=== PATIENT | male | born 1995 | race Caucasian/White ===

== ENCOUNTER 2016-12-21 10:03 | Emergency (ER) | payer OTHER ==
[2016-12-21 10:22] VITALS: BP 147/83
[2016-12-21] MEDS ORDERED: MAG HYDROX/AL HYDROX/SIMETH SUSP 30 ML UDCUP PO ONE (10:34)
[2016-12-21] MEDS ORDERED: LIDOCAINE 2% VISCOUS SOLN 20 ML UDCUP PO ONE (10:34)
[2016-12-21] MEDS ORDERED: METOCLOPRAMIDE HCL 10 MG TABLET PO ONE (10:34)
--- NOTE | 2016-12-21 10:38 | ER Document Report ---
ED Medical Screen (RME) - General Chief Complaint: Abdominal Pain Stated Complaint: VOMITING Time Seen by Provider: 12/21/16 10:28 Notes: Patient is a 21-year-old male presents emergency department complaining of abdominal pain intermittent for 1 week. Admits to associated nausea, vomiting, diarrhea. Patient states that he has a history of chronic epigastric pain that has been on and off since he had about 15 years old. Patient has followed with Dr. Hamm has had an EGD colonoscopy in the past. Denies any diagnosis of Crohn 's disease, ulcerative colitis, irritable bowel disease. Patient states that he does have heartburn from time to time. Denies any improvement with. States he cannot tolerate Pepto-Bismol. I have greeted and performed a rapid initial assessment of this patient. A comprehensive ED assessment and evaluation of the patient, analysis of test results and completion of the medical decision making process will be conducted by additional ED providers. TRAVEL OUTSIDE OF THE [place] IN LAST 30 DAYS: No - Related Data Allergies/Adverse Reactions: No Known Allergies Allergy (Verified 12/21/16 10:19) Past Medical History Renal/ Medical History: Denies: Hx Peritoneal Dialysis - Immunizations Immunizations up to date: Yes Hx Diphtheria, Pertussis, Tetanus Vaccination: Yes Physical Exam - Vital signs Vitals: Temp Pulse Resp BP Pulse Ox 98.4 F 76 18 147/83 H 98 12/21/16 10:12/21/16 10:12/21/16 10:12/21/16 10:12/21/16 10:19 - General General appearance: Appears well, Alert In distress: None - Respiratory Respiratory status: No respiratory distress Chest status: Nontender Breath sounds: Normal Chest palpation: Normal - Cardiovascular Rhythm: Regular Heart sounds: Normal auscultation Murmur: No Pulses: Normal: Radial - Abdominal Inspection: Normal Distension: No distension Bowel sounds: Normal Tenderness: No: McBurney's point, Guarding, Rebound Course - Vital Signs Vital signs: Temp Pulse Resp BP Pulse Ox 98.4 F 76 18 147/83 H 98 12/21/16 10:19 12/21/16 10:19 12/21/16 10:12/21/16 10:12/21/16 10:19
[2016-12-21 11:16] LABS: ABSOLUTE BASOPHILS # (AUTO) 0.1 10^3/uL (0.0-0.2); ABSOLUTE EOSINOPHILS # (AUTO) 0.2 10^3/uL (0.0-0.6); ABSOLUTE LYMPHOCYTES (AUTO) 1.8 10^3/uL (0.5-4.7); ABSOLUTE MONOCYTES (AUTO) 0.4 10^3/uL (0.1-1.4); ABSOLUTE NEUT (AUTO) 2.8 10^3/uL (1.7-8.2); EOSINOPHILS % (AUTO) 3.7 % (0-6); HEMATOCRIT 46.3 % (37.9-51.0); HEMOGLOBIN 15.6 g/dL (13.5-17.0); HGB HCT DIFFERENCE 0.5; LYMPHOCYTES % (AUTO) 35.1 % (13-45); MEAN CORPUSCULAR HEMOGLOBIN 31.7 pg (27.0-33.4); MEAN CORPUSCULAR HGB CONC 33.8 g/dL (32.0-36.0); MEAN CORPUSCULAR VOLUME 94 fl (80-97); MONOCYTES % (AUTO) 6.9 % (3-13); RED BLOOD COUNT 4.93 10^6/uL (4.35-5.55); RED CELL DISTRIBUTION WIDTH 12.3 % (11.5-14.0); SEGMENTED NEUTROPHILS % (AUTO) 53.3 % (42-78); WHITE BLOOD COUNT 5.2 10^3/uL (4.0-10.5)
[2016-12-21 11:31] LABS: ALANINE AMINOTRANSFERASE 23 U/L (21-72); ALBUMIN 4.2 g/dL (3.5-5.0); ALKALINE PHOSPHATASE 63 U/L (38-126); ANION GAP 9 (5-19); ASPARTATE AMINO TRANSFERASE 18 U/L (17-59); BILIRUBIN,DIRECT 0.3 mg/dL (0.0-0.4); BILIRUBIN,TOTAL 0.9 mg/dL (0.2-1.3); BLOOD UREA NITROGEN 8 mg/dL (7-20); CALCIUM 9.8 mg/dL (8.4-10.2); CARBON DIOXIDE 28 mmol/L (22-30); CHLORIDE 105 mmol/L (98-107); CREATININE RESULT 0.82 mg/dL (0.52-1.25); GLUCOSE 90 mg/dL (75-110); LIPASE 72.6 U/L (23-300); POTASSIUM 5.1 mmol/L (3.6-5.0); SODIUM 141.8 mmol/L (137-145); TOTAL PROTEIN 6.6 g/dL (6.3-8.2)
--- NOTE | 2016-12-21 11:34 | ER Document Report ---
ED GI/ - General Chief Complaint: Abdominal Pain Stated Complaint: VOMITING Time Seen by Provider: 12/21/16 10:28 Notes: Patient is a 21-year-old male presents emergency department complaining of abdominal pain intermittent for 1 week. Admits to associated nausea, vomiting, diarrhea. Patient states that he has a history of chronic epigastric pain that has been on and off since he had about 15 years old. Patient has followed with Dr. Hamm has had an EGD colonoscopy in the past. Denies any diagnosis of Crohn 's disease, ulcerative colitis, irritable bowel disease. Patient states that he does have heartburn from time to time and had to take medication but unaware of what it was. States it did improve his symptoms. Denies any improvement with tums, states he cannot tolerate Pepto-Bismol. TRAVEL OUTSIDE OF THE [place] IN LAST 30 DAYS: No - Related Data Allergies/Adverse Reactions: No Known Allergies Allergy (Verified 12/21/16 10:19) Past Medical History - Social History Smoking Status: Current Every Day Smoker Chew tobacco use (# tins/day): No Frequency of alcohol use: Social Drug Abuse: None Family History: Reviewed & Not Pertinent Patient has suicidal ideation: No Patient has homicidal ideation: No Renal/ Medical History: Denies: Hx Peritoneal Dialysis - Immunizations Immunizations up to date: Yes Hx Diphtheria, Pertussis, Tetanus Vaccination: Yes Review of Systems - Review of Systems Constitutional: No symptoms reported EENT: No symptoms reported Cardiovascular: No symptoms reported Respiratory: No symptoms reported Gastrointestinal: See HPI Genitourinary: No symptoms reported -: Yes All other systems reviewed and negative Physical Exam - Vital signs Vitals: Temp Pulse Resp BP Pulse Ox 98.4 F 76 18 147/83 H 98 12/21/16 10:19 12/21/16 10:19 12/21/16 10:19 12/21/16 10:19 12/21/16 10:19 - Notes Notes: PHYSICAL EXAM GENERAL: Alert, interacts well. HEAD: Normocephalic, atraumatic. EYES: Pupils equal, round, and reactive to light. Extraocular movements intact. ENT: Oral mucosa moist, tongue midline. NECK: Full range of motion. Supple. Trachea midline. LUNGS: Clear to auscultation bilaterally, no wheezes, rales, or rhonchi. No respiratory distress. HEART: Regular rate and rhythm. No murmurs, gallops, or rubs. ABDOMEN: Soft, nondistended, nontender. No guarding, rebound, or rigidity.. Bowel sounds present in all 4 quadrants. EXTREMITIES: Moves all 4 extremities spontaneously. No edema, radial and dorsalis pedis pulses 2/4 bilaterally. No cyanosis. NEUROLOGICAL: Alert and oriented x4. Normal speech. PSYCH: Normal affect, normal mood. SKIN: Warm, dry, normal turgor. No rashes or lesions noted. Course - Re-evaluation Re-evalutation: 12/21/16 19:11 Patient is a 21-year-old male who is hemodynamically stable, no acute distress and afebrile. Review of Dr. Hamm evaluation showed the patient was diagnosed with esophageal reflux disease. Patient has been started on Nexium but never followed up with him. No evidence of irritable bowel disease, Crohn's, ulcerative colitis on colonoscopy results. Based on the results and benign history and physical exam, discharge patient home continuing PPI treatment and can follow-up with Dr. Hamm - Vital Signs Vital signs: Temp Pulse Resp BP Pulse Ox 98.4 F 76 18 147/83 H 98 12/21/16 10:19 12/21/16 10:19 12/21/16 10:19 12/21/16 10:19 12/21/16 10:19 - Laboratory Result Diagrams: 12/21/16 10:45 12/21/16 10:45 Laboratory results interpreted by me: 12/21/16 10:45 Potassium 5.1 H Discharge - Discharge Clinical Impression: Epigastric abdominal pain Condition: Good Disposition: HOME, SELF-CARE Additional Instructions: ABDOMINAL PAIN: There are many causes of abdominal pain. Pain can mean a serious problem requiring surgery (such as appendicitis). It can also be an innocent problem that goes away on its own (such as a viral infection). Often, time must pass to determine the cause of pain. The physician does not feel that hospitalization is necessary, at present. Things may change within the next 24 hours. Call the doctor or come back for re- examination if any problems occur, such as: (1) Pain that becomes more severe, steady, or becomes concentrated in one specific area. Also, pain that is more severe with movement or coughing. (2) Vomiting that persists or becomes more frequent. (3) Blood in the vomitus, urine, or bowel movements. Blood in the stool may have a tarry or black appearance. (4) Shaking chills or fever greater than 100 degrees F. (5) The abdomen becomes more distended or swollen. (6) Bowel movements cease. (7) Failure to improve as expected. NORMAL EXAM AND WORKUP: At this time, your examination and workup show no significant abnormality. No significant abnormal physical findings are noted. All laboratory, EKG, and imaging (x-ray, CT scans, ultrasound) studies that were ordered show no significant abnormality. Although your examination and all studies that were ordered showed no significant abnormal finding, there are no examinations and no studies that are 100% accurate. There is always the possibility that some abnormality could exist and not be detected with physical examination or within the limits and capabilities of laboratory and other studies. You should return or follow up as you were instructed on your visit today for further evaluation if your symptoms do not resolve. ANTINAUSEA MEDICATION: You have been given a medication to suppress nausea and vomiting. This type of medication can be given as a shot, pill, or suppository. It will usually last for many hours. Pills and shots usually last six to eight hours, suppositories last about 12 hours. For the typical illness, only one or two doses of the medication may be necessary. Mild lightheadedness may occur. This type of medicine can cause drowsiness. Do not drive or operate dangerous machinery while under its influence. Do not mix with alcohol. See your doctor at once if you have muscle spasms or tightness, or uncontrollable motions (particularly of the neck, mouth, or jaw). Persistent vomiting or severe lightheadedness should also be evaluated by the physician. FOLLOW-UP CARE: If you have been referred to a physician for follow-up care, call the physician s office for an appointment as you were instructed or within the next two days. If you experience worsening or a significant change in your symptoms, notify the physician immediately or return to the Emergency Department at any time for re-evaluation. Prescriptions: Ondansetron [Zofran Odt 4 mg Tablet] 1 - 2 tab PO Q4H PRN #15 tab.rapdis PRN Reason: For Nausea/Vomiting Pantoprazole Sodium [Protonix] 20 mg PO DAILY #30 tablet.dr Forms: Elevated Blood Pressure, Return to Work Referrals: JANEY MOSELEY MD [ACTIVE STAFF] - Follow up in 1 week
[2016-12-21] MEDS ORDERED: FAMOTIDINE 20 MG TABLET PO ONE (12:17)
== END 2016-12-21 12:50 | disposition home or self-care (01) ==
LOC: ER 10:03
DX: K21.9 Gastro-esophageal reflux disease without esophagitis (principal); R10.13 Epigastric pain; R11.2 Nausea with vomiting, unspecified; R19.7 Diarrhea, unspecified; F17.200 Nicotine dependence, unspecified, uncomplicated; Z87.19 Personal history of other diseases of the digestive system
CPT/HCPCS: 99283; 36415; 83690; 85025; 80053; J3490

== ENCOUNTER 2019-07-28 10:49 | Emergency (ER) | payer OTHER ==
--- NOTE | 2019-07-28 11:17 | ER Document Report ---
ED Medical Screen (RME) - General Chief Complaint: Abdominal Pain Stated Complaint: ABDOMINAL,BACK PAIN Time Seen by Provider: 07/28/19 11:14 Notes: Patient is a 23-year-old male who presents to the emergency department with a chief complaint of abdominal pain. Patient reports he is had intermittent abdominal pain over the past few months. Patient reports it seems worse in his right lower quadrant. Patient reports this is intermittent and is not exacerbated by anything specific such as eating, position change or drinking. Patient denies fever. Patient reports his last bowel movement was 2 days ago. Patient reports that sharp in nature. Patient reports he has vomited twice over the past 24 hours due to the increase in pain. Patient reports back in 2016 he had similar symptoms in which he did have a colonoscopy. Patient reports they did remove one polyp but not tell him if anything else was going on. Patient reports they did place him on a medication for possible gastritis he believes but he stopped taking it as he did not like the side effects. Patient denies blood in his stool. TRAVEL OUTSIDE OF THE [place] IN LAST 30 DAYS: No - Related Data Allergies/Adverse Reactions: No Known Allergies Allergy (Verified 07/28/19 11:09) Past Medical History - Social History Chew tobacco use (# tins/day): No Frequency of alcohol use: None Drug Abuse: None Renal/ Medical History: Denies: Hx Peritoneal Dialysis - Immunizations Immunizations up to date: Yes Hx Diphtheria, Pertussis, Tetanus Vaccination: Yes Physical Exam - Vital signs Vitals: Temp Pulse Resp BP Pulse Ox 98.1 F 97 20 129/71 H 100 07/28/19 11:03 07/28/19 11:03 07/28/19 11:03 07/28/19 11:03 07/28/19 11:03 - Abdominal Inspection: Normal Distension: No distension Bowel sounds: Normal Tenderness: Tender - Tenderness to the left upper quadrant, left lower quadrant, right lower quadrant Organomegaly: No organomegaly Course - Re-evaluation Re-evalutation: 07/28/19 11:16 I have greeted and performed a rapid initial assessment of this patient. A comprehensive ED assessment and evaluation of the patient, analysis of test results and completion of the medical decision making process will be conducted by additional ED providers. - Vital Signs Vital signs: Temp Pulse Resp BP Pulse Ox 98.1 F 97 20 129/71 H 100 07/28/19 11:03 07/28/19 11:03 07/28/19 11:03 07/28/19 11:03 07/28/19 11:03
[2019-07-28 12:09] LABS: ABSOLUTE BASOPHILS # (AUTO) 0.1 10^3/uL (0.0-0.2); ABSOLUTE EOSINOPHILS # (AUTO) 0.4 10^3/uL (0.0-0.6); ABSOLUTE MONOCYTES (AUTO) 0.5 10^3/uL (0.1-1.4); ABSOLUTE NEUT (AUTO) 3.8 10^3/uL (1.7-8.2); BASOPHILS % (AUTO) 1.3 % (0-2); EOSINOPHILS % (AUTO) 5.3 % (0-6); HEMATOCRIT 44.7 % (37.9-51.0); HEMOGLOBIN 15.7 g/dL (13.5-17.0); LYMPHOCYTES % (AUTO) 30.5 % (13-45); MEAN CORPUSCULAR HEMOGLOBIN 31.7 pg (27.0-33.4); MEAN CORPUSCULAR HGB CONC 35.2 g/dL (32.0-36.0); MEAN CORPUSCULAR VOLUME 90 fl (80-97); MONOCYTES % (AUTO) 6.9 % (3-13); PLATELET COUNT 250 10^3/uL (150-450); RED BLOOD COUNT 4.95 10^6/uL (4.35-5.55); RED CELL DISTRIBUTION WIDTH 12.5 % (11.5-14.0); TOTAL CELLS COUNTED % (AUTO) 100 %; WHITE BLOOD COUNT 6.7 10^3/uL (4.0-10.5)
[2019-07-28 12:30] LABS: ALBUMIN 4.8 g/dL (3.5-5.0); ALKALINE PHOSPHATASE 83 U/L (38-126); ANION GAP 11 (5-19); ASPARTATE AMINO TRANSFERASE 21 U/L (17-59); BILIRUBIN,DIRECT 0.2 mg/dL (0.0-0.4); BILIRUBIN,TOTAL 0.5 mg/dL (0.2-1.3); BLOOD UREA NITROGEN 6 mg/dL (7-20); CALCIUM 10.6 mg/dL (8.4-10.2); CARBON DIOXIDE 30 mmol/L (22-30); CHLORIDE 103 mmol/L (98-107); GLUCOSE 93 mg/dL (75-110); POTASSIUM 5.1 mmol/L (3.6-5.0); TOTAL PROTEIN 8.2 g/dL (6.3-8.2)
[2019-07-28 12:46] LABS: APPEARANCE,URINE CLEAR; BILIRUBIN,URINE NEGATIVE (NEGATIVE); COLOR,URINE YELLOW; GLUCOSE, URINE NEGATIVE (NEGATIVE); KETONES,URINE NEGATIVE (NEGATIVE); LEUKOCYTE ESTERASE,URINE NEGATIVE (NEGATIVE); NITRITE,URINE NEGATIVE (NEGATIVE); PROTEIN,URINE NEGATIVE (NEGATIVE); URINE SPECIFIC GRAVITY 1.011
[2019-07-28] MEDS ORDERED: NORMAL SALINE 1000 ML 1,000 ML IV ONE (13:46)
[2019-07-28] MEDS ORDERED: METOCLOPRAMIDE HCL INJ/PF 10 MG/2 ML SDV IV ONE (13:46)
[2019-07-28] MEDS ORDERED: KETOROLAC TROMETHAMINE INJ/PF 30 MG/1 ML SDV IV ONE (13:46)
[2019-07-28] MEDS ORDERED: CAPSAICIN 0.025% CREAM 60 GM TP ONE (13:47)
--- NOTE | 2019-07-28 13:52 | ER Document Report ---
ED General - General Chief Complaint: Abdominal Pain Stated Complaint: ABDOMINAL,BACK PAIN Time Seen by Provider: 07/28/19 11:14 Mode of Arrival: Ambulatory Information source: Patient Notes: 23-year-old male presents emergency department with complaints of left lower quad abdominal pain that radiates to his testicles for the past few months. Patient reports he has had this pain for over 6 years. It comes and goes. Patient reports he has vomited at least 6 times today. Reports he has not had anything to eat for 2 days. He reports he is only drinking very little amount of water. Denies fever. Patient reports last bowel movement was 2 days ago. Patient reports he is voiding without problems. Patient reports he does smoke marijuana on a daily basis for the past 6 years. Has history of gastritis. He has had a colonoscopy where a polyp was removed. He denies kidney stones. D enies history of IBS or Crohn's, denies history of diverticulitis. TRAVEL OUTSIDE OF THE [place] IN LAST 30 DAYS: No - HPI Onset: Other Onset/Duration: Persistent, Waxing and waning Quality of pain: Achy Associated symptoms: Nausea, Vomiting Exacerbated by: Denies Relieved by: Denies Similar symptoms previously: Yes Recently seen / treated by doctor: No - Related Data Allergies/Adverse Reactions: No Known Allergies Allergy (Verified 07/28/19 11:09) Past Medical History - General Information source: Patient, Relative - Social History Smoking Status: Current Every Day Smoker Cigarette use (# per day): Yes Chew tobacco use (# tins/day): No Frequency of alcohol use: None Drug Abuse: Marijuana Lives with: Family Family History: Reviewed & Not Pertinent Patient has suicidal ideation: No Patient has homicidal ideation: No Renal/ Medical History: Denies: Hx Peritoneal Dialysis GI Medical History: Reports: Hx Gastritis, Hx Colonoscopy Surgical Hx: Negative - Immunizations Immunizations up to date: Yes Hx Diphtheria, Pertussis, Tetanus Vaccination: Yes Review of Systems - Review of Systems Notes: Review HPI for review of systems., All other systems negative Physical Exam - Vital signs Vitals: Temp Pulse Resp BP Pulse Ox 98.1 F 97 20 129/71 H 100 07/28/19 11:03 07/28/19 11:03 07/28/19 11:03 07/28/19 11:03 07/28/19 11:03 - General General appearance: Alert, Anxious In distress: Mild - HEENT Head: Normocephalic, Atraumatic Eyes: Normal Conjunctiva: Normal Extraocular movements intact: Yes Ears: Normal External canal: Normal Tympanic membrane: Normal Mucous membranes: Normal, Moist Pharynx: Normal Neck: Normal, Supple. No: Lymphadenopathy - Respiratory Respiratory status: No respiratory distress Chest status: Nontender Breath sounds: Normal Chest palpation: Normal - Cardiovascular Rhythm: Regular Heart sounds: Normal auscultation Murmur: No - Abdominal Inspection: Normal Distension: No distension Bowel sounds: Normal Tenderness: Tender - Left lower quad tenderness Organomegaly: No organomegaly - Back Back: Tender - Complains of low back pain. No: CVA tenderness, Vertebra tende rness - Extremities General upper extremity: Normal ROM General lower extremity: Normal ROM - Neurological Neuro grossly intact: Yes Cognition: Normal Orientation: AAOx4 Branden Coma Scale Eye Opening: Spontaneous Branden Coma Scale Verbal: Oriented Branden Coma Scale Motor: Obeys Commands Terral Coma Scale Total: 15 Speech: Normal Cranial nerves: Normal Cerebellar coordination: Normal Motor strength normal: LUE, RUE, LLE, RLE - Psychological Associated symptoms: Normal affect, Normal mood - Skin Skin Temperature: Warm Skin Moisture: Dry Skin Color: Normal, Pale Course - Re-evaluation Re-evalutation: 07/28/19 13:52 23-year-old male presents with complaints of abdominal pain for the past few months. Reports that he has had this abdominal pain for the past 6 years reports it comes and goes. Patient has had a colonoscopy in the past reports a polyp was removed. Patient reports he is vomited at least 6 times today. He admits to smoking marijuana on a daily basis with a history of gastritis. Patient looks uncomfortable will be treated patient with Toradol Reglan CT of the abdomen and capsation cream 07/28/19 17:[address] and KUB report constipation. Patient reports no further vomiting since arrival. Patient drinking p.o. fluids without complaints. Patient reports last bowel movement was 2 days ago. He reports the capsaicin cream did not help him made his stomach feel like it was on fire. Patient will be given mag citrate here discharged home. He was instructed on the importance of pushing fluids stay hydrated take stool softener as indicated return for concerns. He verbalized understanding to all instructions. Laboratory 07/28/19 07/28/19 07/28/19 11:43 11:43 12:00 WBC 6.7 RBC 4.95 Hgb 15.7 Hct 44.7 MCV 90 MCH 31.7 MCHC 35.2 RDW 12.5 Plt Count 250 Lymph % (Auto) 30.5 [place] % (Auto) 6.9 Eos % (Auto) 5.3 Baso % (Auto) 1.3 Absolute Neuts (auto) 3.8 Absolute Lymphs (auto) 2.0 Absolute Monos (auto) 0.5 Absolute Eos (auto) 0.4 Absolute Basos (auto) 0.1 Seg Neutrophils % 56.0 Sodium 143.6 Potassium 5.1 H Chloride 103 Carbon Dioxide 30 Anion Gap 11 BUN 6 L Creatinine 0.65 Est GFR ( Amer) > 60 Est GFR (MDRD) Non-Af > 60 Glucose 93 Calcium 10.6 H Total Bilirubin 0.5 Direct Bilirubin 0.2 Neonat Total Bilirubin Not Reportable Neonat Direct Bilirubin Not Reportable Neonat Indirect Bili Not Reportable AST 21 ALT 13 Alkaline Phosphatase 83 Total Protein 8.2 Albumin 4.8 Lipase 59.2 Urine Color YELLOW Urine Appearance CLEAR Urine pH 7.0 Ur Specific [place] 1.011 Urine Protein NEGATIVE Urine Glucose (UA) NEGATIVE Urine Ketones NEGATIVE Urine Blood NEGATIVE Urine Nitrite NEGATIVE Urine Bilirubin NEGATIVE Urine Urobilinogen 2.0 H Ur Leukocyte Esterase NEGATIVE Urine WBC (Auto) 1 Urine RBC (Auto) 0 Urine Mucus (Auto) RARE Urine Ascorbic Acid NEGATIVE KUB X-Ray 07/28/19 13:27 IMPRESSION: Moderate amount of stool in the colon which can be seen with constipation. Clinical correlation. Nonobstructive bowel gas pattern. Abdomen/Pelvis CT 07/28/19 13:46 IMPRESSION: Moderate amount of stool in the colon and rectum which can be seen with constipation. No bowel obstruction. - Vital Signs Vital signs: Temp Pulse Resp BP Pulse Ox 98.4 F 71 16 143/85 H 99 07/28/19 17:08 07/28/19 17:08 07/28/19 17:08 07/28/19 17:08 07/28/19 17:08 - Laboratory Result Diagrams: 07/28/19 11:43 07/28/19 11:43 Laboratory results interpreted by me: 07/28/19 07/28/19 11:43 12:00 Potassium 5.1 H BUN 6 L Calcium 10.6 H Urine Urobilinogen 2.0 H - Diagnostic Test Radiology reviewed: Reports reviewed Discharge - Discharge Clinical Impression: Constipation Qualifiers: Constipation type: unspecified constipation type Qualified Code(s): K59.00 - Constipation, unspecified Abdominal pain Qualifiers: Abdominal location: left lower quadrant Qualified Code(s): R10.32 - Left lower quadrant pain Condition: Stable Disposition: HOME, SELF-CARE Instructions: Abdominal Pain ([facility]), Constipation ([facility]) Additional Instructions: *You have been evaluated for abdominal pain, constipation *Take a stool softener as indicated *Follow up with a primary care provider within 5 days *Return to ED for worsening condition, changes, needs *Return to ED if not better in 24 hours
--- NOTE | 2019-07-28 14:16 | RADIOLOGY REPORT (SQ) ---
EXAM DESCRIPTION: KUB/ABDOMEN (SINGLE VIEW) COMPLETED DATE/TIME: 07/28/2019 12:53 pm REASON FOR STUDY: rule out constipation COMPARISON: CT abdomen and pelvis, 12/25/2014 NUMBER OF VIEWS: One view. TECHNIQUE: Supine radiographic image of the abdomen acquired. LIMITATIONS: None. FINDINGS: BOWEL GAS PATTERN: Moderate amount of stool throughout the colon area in Normal bowel gas pattern. No dilated loops. CALCIFICATIONS: No suspicious calcifications. SOFT TISSUES: No gross mass or suggestion of organomegaly. HARDWARE: None in the abdomen. BONES: No acute fracture. No worrisome bone lesions. OTHER: No other significant finding. IMPRESSION: Moderate amount of stool in the colon which can be seen with constipation. Clinical cor relation. Nonobstructive bowel gas pattern. TECHNICAL DOCUMENTATION: JOB ID: [id number] [employer]- All Rights Reserved Reading location - IP/workstation name: [email or web address]
--- NOTE | 2019-07-28 16:46 | RADIOLOGY REPORT (SQ) ---
EXAM DESCRIPTION: CT ABD/PELVIS WITH IV ONLY COMPLETED DATE/TIME: 07/28/2019 3:29 pm REASON FOR STUDY: llq abd pain COMPARISON: 12/25/2014 TECHNIQUE: CT scan of the abdomen and pelvis performed using helical scanning technique with dynamic intravenous contrast injection. No oral contrast. Images reviewed with lung, soft tissue, and bone windows. Reconstructed coronal and sagittal MPR images reviewed. Delayed images for evaluation of the urinary system also acquired. All images stored on PACS. All CT scanners at this facility use dose modulation, iterative reconstruction, and/or weight based d osing when appropriate to reduce radiation dose to as low as reasonably achievable (ALARA). [facility]: Dose Right [facility]: CareDose [facility]: Dose Right [facility]: Teradose 4D [facility]: Tunepresto CONTRAST TYPE AND DOSE: contrast/concentration: Isovue 350.00 mg/ml; Total Contrast Delivered: 85.0 ml; Total Saline Delivered: 69.0 ml RENAL FUNCTION: GFR > 60. RADIATION DOSE: CT Rad equipment meets quality standard of care and radiation dose reduction techniq ues were employed. CTDIvol: 5.9 - 8.0 mGy. DLP: 809 mGy-cm.. LIMITATIONS: None. FINDINGS: LOWER CHEST: No significant findings. No nodules or infiltrates. LIVER: Normal size. No masses. No dilated ducts. SPLEEN: Normal size. No focal lesions. PANCREAS: No masses. No significant calcifications. No adjacent inflammation or peripancreatic fluid collections. Pancreatic duct not dilated. GALLBLADDER: No identified stones by CT criteria. No inflammatory changes to suggest cholecystitis. ADRENAL GLANDS: No significant masses or asymmetry. RIGHT KIDNEY AND URETER: No solid masses. No significant calcifications. No hydronephrosis or hyd roureter. LEFT KIDNEY AND URETER: No solid masses. No significant calcifications. No hydronephrosis or hydr oureter. AORTA AND VESSELS: No aneurysm. No dissection. Renal arteries, SMA, celiac without stenosis. RETROPERITONEUM: No retroperitoneal adenopathy, hemorrhage or masses. BOWEL AND PERITONEAL CAVITY: There is a moderate amount of stool throughout the colon and rectum. No bowel obstruction. No masses or inflammatory changes. No free fluid or peritoneal masses. APPENDIX: Normal. PELVIS: No mass. No free fluid. Normal bladder. ABDOMINAL WALL: No masses. No hernias. BONES: No significant or acute findings. OTHER: No other significant finding. IMPRESSION: Moderate amount of stool in the colon and rectum which can be seen with constipation. N o bowel obstruction. TECHNICAL DOCUMENTATION: JOB ID: [id number] Quality ID # [id number]: Final reports with documentation of one or more dose reduction techniques (e.g., Au tomated exposure control, adjustment of the mA and/or kV according to patient size, use of iterative reconstruction technique) 2010 [employer]- All Rights Reserved Reading location - IP/workstation name: [email or web address]
[2019-07-28] MEDS ORDERED: MAGNESIUM CITRATE 296 ML BOTTLE PO ONE (17:03)
[2019-07-28 17:10] VITALS: BP 143/85
== END 2019-07-28 17:17 | disposition home or self-care (01) ==
LOC: ER 10:49
DX: K59.00 Constipation, unspecified (principal); R10.32 Left lower quadrant pain; R11.10 Vomiting, unspecified; R11.2 Nausea with vomiting, unspecified; F17.210 Nicotine dependence, cigarettes, uncomplicated
CPT/HCPCS: 99284; 36415; 83690; 85025; 80053; 81001; 74018; 74177; J3490 ×2; J1885; J2765; J7030